=== PATIENT | female | born 1980 | race Caucasian/White ===

== ENCOUNTER 2016-06-20 05:04 | Emergency (ER) | payer SELFPAY | END 2016-06-20 05:24 | disposition home or self-care (01) | LOC: FER 05:04 | DX: S50.12XA Contusion of left forearm, initial encounter (principal); Z23 Encounter for immunization; R11.0 Nausea; W31.9XXA Contact with unspecified machinery, initial encounter; Y92.69 Other specified industrial and construction area as the place of occurrence of the external cause; Y99.0 Civilian activity done for income or pay | CPT/HCPCS: 90471; 90715 ==

== ENCOUNTER 2016-06-27 22:41 | Emergency (ER) | payer SELFPAY | END 2016-06-27 23:45 | disposition home or self-care (01) | LOC: FER 22:41 | DX: S51.802A Unspecified open wound of left forearm, initial encounter (principal); L08.9 Local infection of the skin and subcutaneous tissue, unspecified; W31.9XXA Contact with unspecified machinery, initial encounter; Y92.69 Other specified industrial and construction area as the place of occurrence of the external cause | CPT/HCPCS: 99282 ==